=== PATIENT | female | born 1975 | race Caucasian/White ===

== ENCOUNTER 2023-01-05 14:05 | Emergency (ER) | payer OTHER ==
[2023-01-05] MEDS ORDERED: Acetaminophen 500 MG TAB ONE (14:33)
== END 2023-01-05 15:00 | disposition home or self-care (01) ==
LOC: BURERS 14:05
DX: S29.011A Strain of muscle and tendon of front wall of thorax, initial encounter (principal); S60.212A Contusion of left wrist, initial encounter; S60.211A Contusion of right wrist, initial encounter; V59.40XA Driver of pick-up truck or van injured in collision with unspecified motor vehicles in traffic accident, initial encounter
CPT/HCPCS: 71045; G0390